=== PATIENT | male | born 1985 | race Caucasian/White ===

== ENCOUNTER 2016-08-03 19:59 | Inpatient (IN) | payer BC ==
--- NOTE | ~2016-08-03 | DS ---
Unit #: [id number] #: [id number] Patient: JACINDA METZ [id number] [facility]. [place], [place] [address] [id number] I MR#: [id number] NAME: JACINDA METZ ROOM: 469 Age: 30 Sex: M Admission Date: 08/04/2016 : 1985 Discharge Date: 08/08/2016 Attending Physician: Marah Siddiqui M.D. Primary Care Physician: Chalo Banegas M.D. DISCHARGE SUMMARY DISCHARGE DIAGNOSES 1. Sepsis. 2. Diverticulitis. 3. Thrombocytopenia. 4. Leukopenia. HOSPITAL COURSE The patient is a 30-year-old male admitted to [facility] via [facility] emergency department secondary to acute diverticulitis. The patient states three days prior to presentation he began with fevers, headache and abdominal pain. In the ED, CT of the abdomen showed acute sigmoid diverticulitis with trace free fluid in the pelvis but no fluid collection or abscess or free air. The patient was admitted and started on IV Levaquin and Flagyl. Levaquin was ultimately switched to Zosyn. The patient was noted to develop both a leukopenia and a thrombocytopenia on 08/04/2016. It was felt that this was secondary to the patient's infection and sepsis. The patient's white blood cell count dropped as low at 1.6 on 08/06/2016 but has rebounded to 4.1 at the time of discharge. The patient's platelet count is currently stable in the 90s. It is expected that this will fully rebound as the patient's white blood cells have done. The patient's diet was advanced on 08/06/2016. He began a low residue diet at that time and has tolerated it well. The patient has not been febrile since 08/05/2016. Given that the patient is tolerating a diet, his cell lines are recovering and he is afebrile. Patient is felt to be well on his way to recovery and to discharge home now. DISCHARGE MEDICATIONS 1. Phenergan 25 mg p.o. q.4 hours p.r.n. nausea. 2. Flagyl 500 mg p.o. t.i.d. x6 days. 3. Augmentin 875 mg p.o. b.i.d. x6 days. FOLLOWUP The patient should followup with his primary care provider at the end of his antibiotic course. Unit #: [id number] #: [id number] Patient: JACINDA METZ Latonia Dictated by... Palomo Kuhn/reji TD: 08/08/2016 14:56 JOB #: [id number] DISCHARGE SUMMARY Page 1 of 1 X Franky Brenner MD X DISCHARGE SUMMARY
--- NOTE | ~2016-08-03 | HP ---
Unit #: [id number] #: [id number] Patient: JACINDA METZ [id number] [address] [place], [place] [address] [id number] I MR#: [id number] NAME: JACINDA METZ. ROOM: 469 Age: 30 Sex: M Admission Date: 08/03/2016 : 1985 Attending Physician: Hanh Melton M.D. Primary Care Physician: Chalo Banegas M.D. HISTORY AND PHYSICAL CHIEF COMPLAINT Acute diverticulitis. HISTORY This pleasant 30-year-old male, with an unremarkable past medical history, was transferred from [facility] emergency department for diverticulitis. The patient was in his usual state of health until three days ago when he developed increasing lower abdominal pain with fevers, headache and fatigue. He went to [facility] ER last evening where a CT scan showed acute sigmoid diverticulitis. The patient denies melena, hematochezia, similar symptoms in the past, or recurrent GI symptoms. He was bolused with IV fluids, given Zosyn, morphine and Zofran. PAST MEDICAL HISTORY Cyst removed from the neck. ALLERGIES None. HOME MEDICATIONS None. FAMILY HISTORY Questionably positive for inflammatory bowel disease. SOCIAL HISTORY The patient lives with his and children. He smokes one pack per day of tobacco, drinks occasional alcohol, denies illicit drug use. REVIEW OF SYSTEMS Abdominal pain, fevers, fatigue, headache, cyst removed from the neck, tobacco abuse. All other systems were reviewed and are otherwise negative. PHYSICAL EXAMINATION GENERAL APPEARANCE: Ana Rosa 30-year-old male, currently in no acute distress. VITAL SIGNS: Prior to transfer - temperature 102.9, pulse 107, respirations 16, blood pressure 130/79. O2 saturation is 98% on room air. HEENT: Eyes PERRLA. Extraocular muscles are intact. Pharynx is benign. NECK: Supple without adenopathy or thyromegaly. CHEST: Clear. CARDIAC: Normal S1 and S2 without S3, S4 or murmur. ABDOMEN: Bowel sounds are present. Lower abdominal tenderness which Unit #: [id number] #: [id number] Patient: JACINDA METZ localizes to the left lower quadrant but without rebound, guarding. No hepatosplenomegaly or masses. EXTREMITIES: Without clubbing, cyanosis or edema. Pedal pulses are present. Tattoos noted over the extremities. No splinter hemorrhages. NEUROLOGIC: The patient is awake, alert, oriented. Cranial nerves are intact. Equal strength throughout. DIAGNOSTIC STUDIES LABORATORY: Hematocrit is 43.1, normal white count and platelet count. SMA-12 - sodium is 134, normal lipase and lactic acid level. Urinalysis - trace protein. IMAGING: CT scan shows acute sigmoid diverticulitis. ASSESSMENT 1. Acute diverticulitis, first episode. 2. Tobacco abuse. PLANS 1. Levaquin and Flagyl. 2. IV fluids and supportive treatment. 3. Bowel rest. 4. DVT prophylaxis. 5. Patient will need a colonoscopy about four weeks after completion of antibiotics to make sure there is no underlying lesion. 6. Increase fiber when diet is advanced. 7. NicoDerm patch and smoking cessation counseling. The above was discussed with the patient. Dictated by Palomo Mcadams/janelle TD: 08/04/2016 07:52 JOB #: [id number] HISTORY AND PHYSICAL Page 1 of 1 X Hanh Melton MD HISTORY AND PHYSICAL
--- NOTE | ~2016-08-03 | CT2 ---
[facility] A Service [facility] RADIOLOGY TEXT RESULTS PATIENT: JACINDA METZ LOCATION: [place] [address] : [birth year] UNIT #: [id number] AGE: [address]: Marah Siddiqui MD SEX: M ORDER DR: [id number] [address] [address] [id number] I MR#: [id number] Acc #: [id number] NAME: JACINDA METZ. : 1985 SEX: M STUDY DATE/TIME: 08/03/2016 21:34 UNIT: SEDOF ROOM: [id number] STUDY DESCRIPTION: CT Abd and Pelv W Cont Attending Physician: Hanh Melton M.D. Ordering Physician: Taras Brown M.D. Primary Care Physician: Chalo Banegas M.D. MEDICAL IMAGING REPORT This report is preliminary unless electronic signature is present. EXAM CT abdomen and pelvis with contrast. DATE 08/03/2016 HISTORY 30-year-old male with lower abdominal pain, fatigue, dizziness and weakness and headache, which began 3 days ago. COMPARISON None. PROCEDURE 5 mL axial images from lung bases through lesser trochanters after intravenous and enteric contrast administration. Sagittal coronal reformatted images were obtained. This CT exam was performed with one or more of the following radiation dose reduction techniques: automatic exposure control, adjustment of mA and/or kV according to patient size, and iterative reconstruction. FINDINGS Abdomen findings: Segmental acute diverticulitis is present in the sigmoid colon. Trace fluid is seen adjacent to the colon, but there is no evidence of peridiverticular abscess or free air. Mild right and distal left ureterectasis is seen. but no obstructing abnormality is identified and there is no luis hydronephrosis. The lung bases are clear. The liver, gallbladder, spleen, pancreas, adrenals and kidneys are within normal limits. The appendix is normal. Pelvis findings: Trace pelvic free fluid. Urinary bladder, prostate and rectum are normal. [facility] Service [facility] RADIOLOGY TEXT RESULTS PATIENT: JACINDA METZ LOCATION: [place] [address] : [birth year] UNIT #: [id number] AGE: [address]: Marah Siddiqui MD SEX: M ORDER DR: IMPRESSION Findings consistent with acute sigmoid diverticulitis. Trace of free fluid is seen within the pelvis, but no drainable fluid collection or abscess or free air is seen. Dictated by... Lima Eubanks M.D. THIS IS AN ELECTRONICALLY VERIFIED REPORT Lima Eubanks M.D. at 08/04/2016 10:40 AM SANTY/rosa TD: 08/04/2016 06:09 JOB #: [id number] MEDICAL IMAGING REPORT Page 1 of 1
[~2016-08-03 19:59] MED LIST: KEFLEX500 MG PO; LORTAB 10-5001 EACH PO; NO MEDICATIONS
[2016-08-03] MEDS ORDERED: NO MEDICATIONS (20:24)
[2016-08-03 21:04] LABS: URINE SOURCE CLEAN CATCH
[2016-08-03 21:06] LABS: BASOPHIL# 0.1 X10e3 (0-0.3); BASOPHIL% 1.9 % (0-2.5); HEMATOCRIT 43.1 % (38.0-50.0); HEMOGLOBIN 14.8 gm/dL (13.0-16.0); LYMPHOCYTE# 0.6 X10e3 (1.0-3.5); LYMPHOCYTE% 14.9 % (17.0-45.0); MEAN CELL VOLUME 88.3 FL (83-96); MEAN CORPUSCULAR HEMOGLOBIN 30.3 PG (28-34); MEAN CORPUSCULAR HGB CONC 34.3 g/dL (30-36); MEAN PLATELET VOLUME 9.1 FL (6.5-11.5); MONOCYTE# 0.9 X10e3 (0-1.0); MONOCYTE% 21.1 % (3.0-12.0); NEUTROPHIL# 2.5 X10e3 (1.5-7.1); NEUTROPHIL% 62.1 % (40-75); PLATELET COUNT 142 X10e3 (140-420); RED BLOOD COUNT 4.88 X10e (3.90-5.60); RED CELL DISTRIBUTION WIDTH 12.9 % (11.0-15.5); WHITE BLOOD COUNT 4.1 X10e3 (4.0-10.5)
[2016-08-03 21:06] LABS: URINE APPEARANCE CLEAR; URINE BILIRUBIN NEG (NEG); URINE BLOOD NEG (NEG); URINE COLOR YELLOW; URINE GLUCOSE NEG (NORM); URINE KETONE NEG (NEG); URINE LEUKOCYTE ESTERASE NEG (NEG); URINE NITRATE NEG (NEG); URINE PH 6.5 (5-8); URINE PROTEIN TRACE (NEG); URINE SPECIFIC GRAVITY 1.015 (1.003-1.035)
[2016-08-03 21:07] LABS: MICRO INDICATED? NO
[2016-08-03 21:07] LABS: DIFF IND NO
[2016-08-03 21:23] LABS: ALBUMIN SERUM 4.3 g/dL (3.5-5.0); BILIRUBIN, DIRECT 0.2 mg/dL (0.0-0.2); BILIRUBIN,INDIRECT 0.5 mg/dL (0.0-0.9); BILIRUBIN,TOTAL 0.7 mg/dL (0.2-2.0); BUN/CREATININE RATIO 7.27; CALCIUM SERUM 9.3 mg/dL (8.4-10.2); CREATININE SERUM 1.1 mg/dL (0.6-1.4); GLOM FILT RATE Estimated 89.6 mL/min (>60); POTASSIUM 3.9 mmol/L (3.5-5.1); PROTEIN TOTAL SERUM 7.7 g/dL (6.0-8.3)
[2016-08-04 09:06] LABS: BASOPHIL% 0.8 % (0-2.5); EOSINOPHIL% 0.1 % (0.0-7.0); HEMATOCRIT 38.2 % (38.0-50.0); HEMOGLOBIN 12.9 gm/dL (13.0-16.0); LYMPHOCYTE# 0.5 X10e3 (1.0-3.5); LYMPHOCYTE% 14.5 % (17.0-45.0); MEAN CELL VOLUME 88.8 FL (83-96); MEAN CORPUSCULAR HGB CONC 33.8 g/dL (30-36); MEAN PLATELET VOLUME 9.2 FL (6.5-11.5); MONOCYTE# 0.5 X10e3 (0-1.0); MONOCYTE% 15.9 % (3.0-12.0); NEUTROPHIL# 2.1 X10e3 (1.5-7.1); NEUTROPHIL% 68.7 % (40-75); PLATELET COUNT 122 X10e3 (140-420); WHITE BLOOD COUNT 3.1 X10e3 (4.0-10.5)
[2016-08-04 09:10] LABS: DIFF IND NO
[2016-08-04 09:32] LABS: CALCIUM SERUM 8.4 mg/dL (8.4-10.2); GLOM FILT RATE Estimated 100.6 mL/min (>60)
[2016-08-05 04:26] LABS: HEMATOCRIT 40.3 % (38.0-50.0); HEMOGLOBIN 13.5 gm/dL (13.0-16.0); MEAN CELL VOLUME 88.8 FL (83-96); MEAN CORPUSCULAR HEMOGLOBIN 29.7 PG (28-34); MEAN CORPUSCULAR HGB CONC 33.5 g/dL (30-36); MEAN PLATELET VOLUME 9.5 FL (6.5-11.5); RED BLOOD COUNT 4.54 X10e (3.90-5.60); RED CELL DISTRIBUTION WIDTH 12.5 % (11.0-15.5); WHITE BLOOD COUNT 2.2 X10e3 (4.0-10.5)
[2016-08-05 04:48] LABS: ALBUMIN SERUM 3.6 g/dL (3.5-5.0); BILIRUBIN,TOTAL 0.8 mg/dL (0.2-2.0); BUN/CREATININE RATIO 5.83; CALCIUM SERUM 8.6 mg/dL (8.4-10.2); CREATININE SERUM 1.2 mg/dL (0.6-1.4); GLOM FILT RATE Estimated 80.7 mL/min (>60); PROTEIN TOTAL SERUM 6.8 g/dL (6.0-8.3)
[2016-08-06 04:14] LABS: BASOPHIL% 0.6 % (0-2.5); EOSINOPHIL% 0.2 % (0.0-7.0); HEMATOCRIT 39.7 % (38.0-50.0); HEMOGLOBIN 13.4 gm/dL (13.0-16.0); LYMPHOCYTE# 0.5 X10e3 (1.0-3.5); LYMPHOCYTE% 33.5 % (17.0-45.0); MEAN CELL VOLUME 88.3 FL (83-96); MEAN CORPUSCULAR HEMOGLOBIN 29.7 PG (28-34); MEAN CORPUSCULAR HGB CONC 33.7 g/dL (30-36); MEAN PLATELET VOLUME 9.9 FL (6.5-11.5); MONOCYTE# 0.3 X10e3 (0-1.0); MONOCYTE% 17.3 % (3.0-12.0); NEUTROPHIL# 0.8 X10e3 (1.5-7.1); NEUTROPHIL% 48.4 % (40-75); RED BLOOD COUNT 4.49 X10e (3.90-5.60); RED CELL DISTRIBUTION WIDTH 12.5 % (11.0-15.5); WHITE BLOOD COUNT 1.6 X10e3 (4.0-10.5)
[2016-08-06 04:18] LABS: DIFF IND YES; PLATELET COUNT 95 X10e3 (140-420)
[2016-08-06 04:32] LABS: PLATELET ESTIMATE DECREASED (NORMAL)
[2016-08-06 04:33] LABS: RBC NORMAL YES
[2016-08-06 04:35] LABS: ALBUMIN SERUM 3.4 g/dL (3.5-5.0); ALKALINE PHOSPHATASE 40 U/L (32-92); ALT (SGPT) 11 U/L (10-40); AST (SGOT) 18 U/L (10-42); BILIRUBIN,TOTAL 0.8 mg/dL (0.2-2.0); BLOOD UREA NITROGEN <5 mg/dL (9-23); BUN/CREATININE RATIO 4.54; CALCIUM SERUM 8.4 mg/dL (8.4-10.2); CARBON DIOXIDE 27 mmol/L (22-31); CHLORIDE 102 mmol/L (100-111); CREATININE SERUM 1.1 mg/dL (0.6-1.4); GLOM FILT RATE Estimated 89.6 mL/min (>60); GLUCOSE FASTING 106 mg/dL (70-110); POTASSIUM 4.2 mmol/L (3.5-5.1); PROTEIN TOTAL SERUM 6.5 g/dL (6.0-8.3); SODIUM 135 mmol/L (135-145)
[2016-08-07 04:02] LABS: BASOPHIL% 0.6 % (0-2.5); EOSINOPHIL% 0.2 % (0.0-7.0); HEMATOCRIT 41.6 % (38.0-50.0); HEMOGLOBIN 13.7 gm/dL (13.0-16.0); LYMPHOCYTE% 41.6 % (17.0-45.0); MEAN CELL VOLUME 89.6 FL (83-96); MEAN CORPUSCULAR HEMOGLOBIN 29.5 PG (28-34); MEAN PLATELET VOLUME 10.1 FL (6.5-11.5); MONOCYTE# 0.4 X10e3 (0-1.0); MONOCYTE% 16.3 % (3.0-12.0); NEUTROPHIL% 41.3 % (40-75); PLATELET COUNT 97 X10e3 (140-420); RED BLOOD COUNT 4.64 X10e (3.90-5.60); RED CELL DISTRIBUTION WIDTH 12.9 % (11.0-15.5); WHITE BLOOD COUNT 2.4 X10e3 (4.0-10.5)
[2016-08-07 04:03] LABS: DIFF IND NO
[2016-08-08 03:11] LABS: HEMATOCRIT 38.5 % (38.0-50.0); HEMOGLOBIN 12.7 gm/dL (13.0-16.0); MEAN CELL VOLUME 89.7 FL (83-96); MEAN CORPUSCULAR HEMOGLOBIN 29.7 PG (28-34); MEAN CORPUSCULAR HGB CONC 33.1 g/dL (30-36); MEAN PLATELET VOLUME 9.7 FL (6.5-11.5); RED BLOOD COUNT 4.3 X10e (3.90-5.60); RED CELL DISTRIBUTION WIDTH 12.6 % (11.0-15.5)
[2016-08-08 03:12] LABS: WHITE BLOOD COUNT 4.1 X10e3 (4.0-10.5)
[2016-08-08] MEDS ORDERED: LORTAB 5-325 M1 EACH PO (13:21)
[2016-08-08] MEDS ORDERED: PHENERGAN25 M1 PO (13:22)
[2016-08-08] MEDS ORDERED: AUGMENTIN PO (13:26)
[2016-08-08] MEDS ORDERED: FLAGYL PO (13:27)
== END 2016-08-08 17:29 | disposition home or self-care (01) | DRG 872 ==
LOC: SED 19:59 → C4C 23:59 → SEDOF 23:59 → C4C 08-04 03:50
PROVIDERS: Emergency Medicine; Internal Medicine
DX: A41.9 Sepsis, unspecified organism (principal); E87.1 Hypo-osmolality and hyponatremia; D69.59 Other secondary thrombocytopenia; K57.32 Diverticulitis of large intestine without perforation or abscess without bleeding; F17.210 Nicotine dependence, cigarettes, uncomplicated; Z71.6 Tobacco abuse counseling; D72.819 Decreased white blood cell count, unspecified
CPT/HCPCS: 36415; 74177; 80048; 80053; 80076; 81003; 83605; 83690; 85025; 85027; 87040; 96361; 96365; 96375; 99285; J1650; J1956; J2270; J2405; J2543; Q9967